=== PATIENT | female | born 2005 | race African-American/Black ===

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

== ENCOUNTER 2024-02-13 19:13 | Emergency (ER) | payer OTHER, SELFPAY ==
--- NOTE | ~2024-02-13 | XR_ITS ---
XR ankle RT min 3V Ordering provider: Sofia Lomas APRN History: . INVERSION INJURY, LAT MALLEOLUS PAIN . Comparison: None. FINDINGS: BONES: No acute fracture or dislocation. JOINT SPACES: Normal. SOFT TISSUES: Normal. IMPRESSION: No acute osseous abnormality of the right ankle. Reviewed, dictated and finalized at location A.
[2024-02-13 19:21] VITALS: BP 129/66; PULSE 85; RESP 16; TEMP 36.6; O2SAT 100
--- NOTE | 2024-02-13 19:42 | ED.GENADULT ---
HPI - General Adult General Chief complaint: Fall Stated complaint: Fall Time Seen by Provider: 02/13/24 19:28 Source: patient, RN notes reviewed and old records reviewed Mode of arrival: ambulatory Limitations: no limitations History of Present Illness HPI narrative: 18-year-old female to Express Care for complaint of right ankle pain and swelling. Patient reports that just prior to arrival she was running through her front yd when she twisted her ankle and fell. Patient reports history of 2 prior sprains to same ankle. Patient attempted to treat prior to arrival with elevation and ice. Patient arrives with crutches from home. Patient endorsing limited range of motion to right ankle due to pain. Patient denies numbness, tingling, surgical history. Patient resting uncomfortably in exam room due to pain. Respirations even and nonlabored. Patient in no acute distress. Related Data Home Medications Medication Instructions Recorded Confirmed citalopram 20 mg tablet 20 mg DAILY 02/13/24 02/13/24 Allergies Allergy/AdvReac Type Severity Reaction Status Date / Time No Known Allergies Allergy Unverified 02/13/24 19:24 Review of Systems Review of Systems: All systems reviewed & are unremarkable except as noted in HPI and below Constitutional: Constitutional: Reports no additional constitutional complaints Eyes: Eyes: Reports no additional eye complaints ENT: Reports system reviewed and no additional complaints, except as documented Cardiovascular: Cardiovascular: Reports no additional cardiovascular complaints, Denies chest pain and Denies dyspnea Respiratory: Respiratory: Reports no additional respiratory complaints, Denies cough and Denies dyspnea Musculoskeletal: Musculoskeletal: Reports as per HPI, Reports arthralgias, Reports joint swelling and Reports limited range of motion Neurologic: Reports system reviewed and no additional complaints, except as documented Psychiatric: Psychiatric: Reports no additional psychiatric complaints PMFSH Comments At the time of my signature, I reviewed and agree with the nursing past medical, surgical, social, and family history. There is no relevant family history pertinent to the patient complaint. Exam Const: General: cooperative, healthy appearing, no acute distress, alert, uncomfortable and well nourished Nutritional Appearance: well nourished Orientation/consciousness: patient oriented x3 Limitations: no limitations HENMT: Head: normal to inspection Ears: external ears normal Face/Nose/Sinus: Normal external nose present, Normal nares present, normal facial exam, No erythema and No edema Face and sinus: normal facial exam, no erythema and no edema Mouth: Yes Normal oral and palatal mucosa present Eyes: General: appearance normal, both eyes and all related structures Neck: Neck: normal visual inspection, full ROM and no meningeal signs Chest: Chest palpation & inspection: normal inspection of the chest Resp: Effort & Inspection: normal respiratory effort and able to speak in complete sentences Cardio: Jugular venous distension: no JVD Back/Spine/Pelvis: Cervical Spine: cervical ROM normal Skin: General skin exam: normal color, no rashes or lesions noted and turgor normal Neuro: General: patient oriented x3, No gait normal, moves all extremities and no meningeal signs Speech: normal speech Gait exam (Neuro): gait abnormal and Assisted gait required crutches Extrem: General: capillary refill normal Right lower extremity: normal capillary refill, edema Details: non-pitting and 2+, ankle Details: tenderness, swelling, edema Details: non-pitting and 2+ and abnormal ROM; no unusual warmth, no ecchymosis and no crepitus and foot Details: normal capillary refill, toes with normal ROM and vascular exam Details: dorsalis pedis pulse present, posterior tibial pulse present and normal capillary refill Psych: Appearance: grossly normal and well kempt Course Course
== END 2024-02-13 19:57 | disposition home or self-care (01) ==
PROVIDERS: Emergency Provider Nurse Practitioner Family
DX: S93.401A Sprain of unspecified ligament of right ankle, initial encounter (principal); X50.9XXA Other and unspecified overexertion or strenuous movements or postures, initial encounter; Y93.02 Activity, running
CPT/HCPCS: 73610; 99213; G0463

== ENCOUNTER 2024-08-19 14:56 | Emergency (ER) | payer MEDICAID, SELFPAY ==
--- NOTE | 2024-08-19 15:03 | ED_ITS ---
HPI - URI/Sore Throat General Chief Complaint: Upper Respiratory Infection Stated Complaint: sinus congestion Time Seen by Provider: 08/19/24 15:27 Source: patient, RN notes reviewed and old records reviewed Mode of arrival: ambulatory Limitations: no limitations History of Present Illness HPI Narrative: 18-year-old female presents to the [facility] with 3 day history of runny nose, stuffy nose, cough, headaches, sinus congestion. Reports that she has taken Benadryl. Denies fevers, chest pain, shortness of breath. Related Data Home Medications ?Medication ?Instructions ?Recorded ?Confirmed ?Last Taken ?Type citalopram 20 mg tablet 20 mg DAILY 02/13/24 02/13/24 Unknown History sertraline 50 mg tablet mg 08/19/24 Unknown History Allergies Allergy/AdvReac Type Severity Reaction Status Date / Time No Known Allergies Allergy Unverified 08/19/24 15:21 Review of Systems Review of Systems: All systems reviewed & are unremarkable except as noted in HPI and below Constitutional: Constitutional: Reports as per HPI ENT: Reports as per HPI and Reports nasal discharge Cardiovascular: Cardiovascular: Reports no additional cardiovascular complaints, Denies chest pain and Denies dyspnea Respiratory: Respiratory: Reports as per HPI, Denies chest congestion, Reports cough and Denies dyspnea Musculoskeletal: Musculoskeletal: Reports no additional musculoskeletal complaints Integumentary/Breasts: Skin/Breast: Reports system reviewed and no additional complaints, except as docu PMFSH Comments At the time of my signature, I reviewed and agree with the nursing past medical, surgical, social, and family history. There is no relevant family history pertinent to the patient complaint. Exam Const: General: cooperative, healthy appearing, comfortable, no acute dis tress, well developed, alert and well nourished Nutritional Appearance: well nourished Orientation/consciousness: patient oriented x3 Limitations: no limitations HENMT: Head: normal to inspection Ears: hearing grossly normal bilaterally, external ears normal, TM's normal bilaterally, EAC's normal, mastoids normal and no periauricular adenopathy Face/Nose/Sinus: Normal external nose present, Normal nares present, Normal nasal mucous membranes and turbinates present and Nasal discharge present clear bilateral Mouth: Yes Normal oral and palatal mucosa present, Yes lip normal, Yes tongue normal and Yes moist mucous membranes Throat: uvula midline, postnasal drainage and no uvular edema Eyes: General: appearance normal, both eyes and all related structures Alignment and Position: alignment normal Neck: Neck: normal visual inspection, full ROM, no lymphadenopathy and no meningeal signs Chest: Chest palpation & inspection: normal inspection of the chest Resp: Effort & Inspection: normal respiratory effort and able to speak in complete sentences Auscultation: clear to auscultation bilaterally, no crackles, no rales, no rhonchi and no wheezes Cardio: Rate: regular rate Skin: General skin exam: normal color and no rashes or lesions noted Neuro: General: patient oriented x3, gait normal, moves all extremities and no meningeal signs Cognition (Neuro): normal cognition Speech: normal speech Gait exam (Neuro): Normal gait present Extrem: General: normal to inspection, full ROM, capillary refill normal and normal gait Psych: Appearance: grossly normal and well kempt Mental Status: mental status grossly normal Speech and movement: Normal speech and movement present and Clear speech present Affect: normal affect Attitude: cooperative Course Course Level of Care: Express Care Visit Vital Signs Vital signs: Vital Signs Temperature 97.6 F 08/19/24 15:13 Pulse Rate 83 08/19/24 15:13 Respiratory Rate 16 08/19/24 15:13 Blood Pressure 126/70 08/19/24 15:13 Pulse Oximetry 100 08/19/24 15:13 Oxygen Delivery Room Air 08/19/24 15:13 Temperature 97.6 F 08/19/24 15:13 Pulse Rate 83 08/19/24 15:13 Respiratory Rate 16 08/19/24 15:13 Blood Pressure 126/70 08/19/24 15:13 Pulse Oximetry 100 08/19/24 15:13 Oxygen Delivery Room Air 08/19/24 15:13 Reviewed MDM - URI/Sore Throat MDM Narrative Medical decision making narrative: Patient sitting comfortably in exam room. Nontoxic, vitals stable. Patient with a 3 day history of URI symptoms. Flu COVID strep were negative, will send for culture. Patient appropriate for outpatient treatment viral URI, allergies and follow-up Discharge instructions reviewed with patient, as well as provided in writing per nursing staff. The instructions also include specific and strict return/GO TO THE ER as well as f/u information. All questions have been answered, and the patient deny any further questions with discharge and discharge plan. Some parts of this dictation were generated by voice recognition software and may contain typographical and/or grammatical inaccuracies. Differential Diagnosis Differential diagnosis: Likely upper respiratory infection, otitis media, sinusitis, viral infection, bronchitis, influenza and pharyngitis Critical Care Time Critical Care Time Critical Care Time: No Discharge Plan Discharge Clinical Impression: PND (post-nasal drip) Upper respiratory infection Qualifiers: URI type: unspecified viral URI Qualified Code(s): J06.9 - Acute upper respiratory infection, unspecified Patient Disposition: Home, Self-Care Condition: Stable Instructions: Antibiotic Form, Upper Respiratory Infection (DC), Postnasal Drip (DC) Additional Instructions: Your rapid strep swab was negative today at [facility]. A throat culture will be sent to the laboratory for further testing. If the test is positive, you will receive a phone call within 48 hours and an appropriate antibiotic will be initiated at that time. Your rapid COVID test were negative Your rapid flu test was negative Your symptoms are likely due to a viral illness, which is not treated with antibiotics. Typically viral infections last 7-10 days, can linger for couple of weeks. It is very important to treat your symptoms. Drink plenty of water, Gatorade, Pedialyte, ice pops or Jell-O. -Alternate Tylenol and Motrin per package directions for fever or pain. You can alternate every 4 hours -Antihistamine medication such as Zyrtec/Claritin/Megha during the day can help improve symptoms. -doing daily nasal irrigations can help relieve pressure your sinuses. Things like a Neti pot -Use Flonase twice a day for 5 days then daily to help reduce the inflammation and dry up your sinuses. -You can also use Mucinex. Be sure to drink plenty of water with this medication at least 8 ounces with every dose and it is important to drink 8 to 10 glasses of water per day. Water is a natural decongestant -Eat and drink things that are easy to swallow, like tea or soup, or popsicles. -Oral rinses such as: Salt water gargles and/or may use topical anesthetic (eg. Chloraseptic spray) or lozenges to relieve dryness or throat pain). -Frequent hand washing or hand central control room operator is one of the best ways to prevent spread of infection. -Using a vaporizer or humidifier at night will also help thin secretions and help with coughing up phlegm. -Follow up with primary care provider in 7-10 days if condition is not improving - For new or worsening symptoms go directly to the nearest ER Patient Language: Bulgarian Prescriptions: No Action citalopram 20 mg tablet 20 mg DAILY sertraline 50 mg tablet Follow-up/Referrals: Maryann Alexis RN [Primary Care Provider] - Time of Disposition: 15:31
[2024-08-19 15:13] VITALS: BP 126/70; PULSE 83; RESP 16; TEMP 36.4; O2SAT 100
--- OUTSIDE RECORDS SUMMARY | 2024-08-19 15:22 | XMS_ITS | Clinical Summary ---
Author Organization [facility] Address [address] [place] [address] Phone Care Team Providers Care Clinical Informatics Specialist Name Role Phone Maryann Alexis APRN, LACING CUTTER Primary Care Provider + Allergies Active Allergy Reactions Criticality Noted Date Comments Cat Dander Swelling 09/19/2023 SWELLING OF EYES Medications ondansetron (ZOFRAN-ODT) 4 MG TABLET DISPERSIBLE Take 1 Tablet by mouth every 8 hours as needed for Nausea - 2nd line. 10 Tablet 5 Active polyethylene glycol (MiraLax) 17 GM/SCOOP Powder Take 17 g by mouth daily. 17 g = 1 scoop. Dissolve in 4 -8 oz of water or other liquid. 116 g 5 Active Additional Information Patient not taking.Reported on 08/13/2024 sertraline (ZOLOFT) 50 MG TabletIndication s:Anxiety and depression TAKE 1 TABLET BY MOUTH DAILY 90 Tablet 1 5 Active Additional Information Patient taking differently:50 mg OralNIGHTLY, Reported on 08/13/2024 Active Problems No known active problems Encounters Date Type Department Care Team Description 08/13/2024 12:30 PM CDT - 08/13/2024 1:30 PM CDT Surgery [facility] Periop [address] [place] [address] Sterling Onofre MD EGD--NORMAL EXAM 08/13/2024 12:10 PM CDT Ancillary Procedure [facility] Main [address] [place] [address] Sterling Onofre MD 08/13/2024 12:05 PM CDT Ancillary Procedure [facility] Main [address] [facility] [place] [address] Sterling Onofre MD 08/13/2024 12:01 PM CDT Anesthesia Event [facility] Periop [address] [place] [address] Bharath Dias APRN, PRODUCTION DRILLING MACHINE OPERATOR 08/13/2024 11:30 AM CDT - 08/13/2024 1:34 PM CDT Hospital Encounter [facility] Preop/Pacu II [address] [place] [address] Sterling Onofre MD Discharge Disposition: Discharged to home or Selfcare 08/13/2024 Travel 08/02/2024 Travel 07/18/2024 Refill [facility] - Family Medicine [facility] [address] [place] [address] Maryann Alexis APRN, LACING CUTTER Medication Refill 07/05/2024 10:30 AM PRESIDENT PRACTICING UROLOGIST Office Visit [facility] Medical [facility] - Gastroenterology - [place] [address] [place] [address] Sterling Onofre MD Blood in stool (Primary Dx); Nausea and vomiting, unspecified vomiting type; Diarrhea, unspecified type Discharge Disposition: Discharged to home or Selfcare 07/05/2024 Travel 06/23/2024 5:10 PM PRESIDENT PRACTICING UROLOGIST - 06/23/2024 8:54 PM PRESIDENT PRACTICING UROLOGIST Emergency [facility] Emergency [address] [place] [address] Dario Flores, PAC Acute blood loss anemia Discharge Disposition: Discharged to home or Selfcare 06/23/2024 Travel 06/14/2024 Telephone [facility] - [place] [address] [place] [phone] Maryann Alexis APRN, LACING CUTTER 06/14/[address] [facility] [address] [place] [phone] Maryann Alexis, SEDRICK, LACING CUTTER Medication Management 06/04/2024 10:00 AM PRESIDENT PRACTICING UROLOGIST [facility] Visit [facility] [address] [place] [address] Maryann Alexis, SEDRICK, LACING CUTTER Anxiety and depression (Primary Dx); Nausea and vomiting, unspecified vomiting type; Diarrhea, unspecified type Discharge Disposition: Discharged to home or Selfcare 06/04/2024 Travel from Last 3 Months Immunizations Immunization Administration Dates Next Due DTAP VACCINE 12/12/2005, 5,01/07/2005,11/22 DTP Vaccine 09/30/2008 Hepatitis A Vaccine, Pediatric/adolescent, 2 Dose Schedule 10/02/2006 Hepatitis A, Pediatric, Unsp ecified Formulation 03/11/2006 Hepatitis B Vaccine, Pediatric/adolescent 03/29/2010,01/07/2005,2004,09/06 Hib Vaccine,unspecified Formulation 11/30,03/27/2005,01/07/2005,11/22 Human Papillomavirus (HPV) 9 -valent Vaccine 06/12/2016,11/07/2015 Inactivated Polio Vaccine 03/27/2005,01/07/2005, 2004 Influenza Vaccine, Quadrivalent, PF 11/0 10/2022,04/22/2022,03/01/2021,04/08,04/23/2017,06/12/2016,06/08/2015 ,03/29/2014 Influenza Vaccine,unspecifie d Formulation 03/13/2012,03/29/2010 MMR Vaccine 09/30/2008,09/09/2005 Meningococcal Group B OMV 03/01/2021,12/14/2020 Meningococcal MCV4O 11/07/2015 Meningococcal Vaccine 12/14/2020 Pneumococcal Vaccine Peds - 7 Valent ,03/27/2005,01/07/2005,11/22 Polio Vaccine,unspecified Formulation 09/30/2008 TDAP Vaccine 11/15/2014 Varicella Vaccine Live 09/30/2008,09/09/2005 Family History Medical History Relation Name Comments Bleeding Disorder Father Congestive Heart Failure Maternal Grandfather Diabetes Maternal Grandfather Hypertension Maternal Grandfather Stroke Maternal Grandfather Congestive Heart Failure Maternal Grandmother High Cholesterol Maternal Grandmother Anxiety disorder Mother Depression Mother High Cholesterol Mother Cancer Paternal Grandfather No Known Problems Paternal Grandmother No Known Problems Sister Relation Name Status Comments Father Alive Maternal Grandfather Maternal Grandmother Alive Mother Alive Paternal Grandfather Paternal Grandmother Alive Sister Alive Social History Tobacco Use Types Packs/Day Years Used Date Smoking Tobacco: Never Alcohol Use Standard Drinks/Week Comments Not Currently 0 (1 standard drink = 0.6 oz pur e alcohol) Urgeities Answer Date Recorded In the past 12 months has [employer], gas, oil, or water [employer] threatened to shut off services in your home? No 09/18/2023 Social Connection and Isolat ion Panel [NHANES] Answer Date Recorded In a typical week, how many times do you talk on the phone with family, friends, or neighbors? More than three times a week 09/18/2023 How often do you get togethe r with friends or relatives? Twice a week 09/18/2023 How often do you attend chur or buddhist services? Never 09/18/2023 Do you belong to any clubs o r organizations such as mosque groups, unions, fraternal or athletic groups, or school groups? No 09/18/2023 How often do you attend meet ings of the clubs or organizations you belong to? Never 09/18/2023 Are you , , di vorced, , never , or living with a partner? Never 09/18/2023 AUDIT-C Answer Date Recorded Q1: How often do you have a drink containing alc ohol? Monthly or less 09/18/2023 Q2: How many drinks containi ng alcohol do you have on a typical day when you are drinking? 1 or 2 09/18/2023 Q3: How often do you have si x or more drinks on one occasion? Less than monthly 09/18/2023 Overall Financial Resource Strain (CARDIA) Answe r Date Recorded How hard is it for you to pa y for the very basics like food, housing, medical care, and heating? Not hard at all 09/18/2023 PHQ-2 Answer Date Recorded Total Score - Questions 1-9 1 07/2024 [facility] - Occupational Stress Questionnaire Answer Date Recorded Do you feel stress - tense, restless, nervous, or anxious, or unable to sleep at night because your mind is troubled all the time - these days? Very much 09/18/2023 Exercise Vital Sign Answer Date Recorde d On average, how many days pe r week do you engage in moderate to strenuous exercise (like a brisk walk)? 1 day 09/18/2023 On average, how many minutes do you engage in exercise at this level? 60 min 09/18/2023 Hunger Vital Sign Answer Date Recorded Within the past 12 months, y ou worried that your food would run out before you got the money to buy more. Never true 09/18/19 24 Within the past 12 months, t he food you bought just didn't last and you didn't have money to get more. Never true 09/18/2023 PRAPARE - Transportation Answer Date Re corded In the past 12 months, has l ack of transportation kept you from medical appointments or from getting medications? No 08/31 In the past 12 months, has l ack of transportation kept you from meetings, work, or from getting things needed for daily living? No 09/18/2023 Housing Stability Vital Sign Answer Marcio e Recorded In the last 12 months, was t here a time when you were not able to pay the mortgage or rent on time? No 09/18/2023 In the last 12 months, how many places have you lived? 1 09/18/2023 In the last 12 months, was t here a time when you did not have a steady place to sleep or slept in a correction (including now)? No 09/18/2023 Sexually Active Control Partners Comments Not Currently Female Comments No Sex and Gender Information Value Date Recorded Sex Assigned at Not on file Legal Sex Female 7:57 PM CDT Gender Identity Not on file Sexual Orientation Not on file Last Filed Vital Signs Vital Sign Reading Time Taken Comments Blood Pressure 123/75 08/13/2024 1:15 PM CDT Pulse 68 08/13/2024 1:15 PM CDT Temperature 36 C (96.8 F) 08/13/2024 1:15 PM CDT Respiratory Rate 16 08/13/2024 1:15 PM CDT Oxygen Saturation 100% 08/13/2024 1:15 PM CDT Inhaled Oxygen Concentration - - Weight 66.7 kg (147 lb) 08/02/2024 2:13 PM PRESIDENT PRACTICING UROLOGIST Height 165.1 cm (5' 5 ) 08/02/2024 2:13 PM PRESIDENT PRACTICING UROLOGIST Body Mass Index 24.46 08/02/2024 2:13 PM PRESIDENT PRACTICING UROLOGIST Plan of Treatment Upcoming Encounters Date Type Department Care Team (Late st Contact Info) Description 10/01/2024 8:15 AM CDT Office Visit [facility] [address] [place] [address] Maryann Alexis, CUT AND PRINT MACHINE OPERATOR, LACING CUTTER [address] [place] [address] Health Maintenance Due Date Last Done Comments Hepatitis C Virus (HCV) Screening 2004 Influenza Immunization (#1) 2024 11/0 10/2022, 04/22/2022, 03/01/2021, Additional history exists SARS-COV-2 Immunization ( season) 2024 DTaP/Tdap/Td Immunization (7 - Td or Tdap) 11/15/2024 11/15/2014, 09/30/2008, 12/12/2005, Additional history exists Respiratory Syncytial Virus (RSV) Immunization (Adult) (1 - 1-dose 75+ series) 09/07/2079 Polio (IPV) Immunization Discontinued 005, 01/07/2005, 2004 Pneumococcal Immunization Combined Aged Out 12/12/2005, 03/27/2005, 01/07/2005, Additional history exists No longer eligible based on patient's age to complete this topic Hepatitis A Immunization Discontinued 10/02/2006, 03/02 Measles Mumps Rubella (MMR) Immunization Discontinued 09/30/2008, 09/09/2005 Varicella Immunization Discontinued 09/30/2008, 2005 Hepatitis B Immunization Completed 010, 01/07/2005, 2004, Additional history exists TdaP Immunization Discontinued 11/15/2014 Human Papillomavirus (HPV) Immunization Completed 06/12/2016, 11/07/2015 Meningococcal Immunization (ACWY) Completed 12/14/2020, 11/07/2015 Meningococcal B Immunization Completed 03/01/2021, 12/14/2020 Rotavirus Immunization Aged Out No lo nger eligible based on patient's age to complete this topic Procedures Procedure Name Priority Date/Time Associated Diagnosis Comments PATHOLOGY SURGICAL Routine 08/13/2024 12:42 PM CDT COLON CA SCRN NOT HI RSK IND 12:03 PM CDT COLONOSCOPY-- CECAL BIOPSY, ASCENDING COLON BIOPSY, TRANSVERSE COLON BIOPSY, DESCENDING COLON BIOPSY, SIGMOID COLON BIOPSY, RECTAL BIOPSYEGD--NO RMAL EXAM Special Needs NEEDS PREG TEST Dx-Nausea & vomiting/Diarrhea COLORECTAL SCRN; HI RISK IND 12:03 PM CDT COLONOSCOPY-- CECAL BIOPSY, ASCENDING COLON BIOPSY, TRANSVERSE COLON BIOPSY, DESCENDING COLON BIOPSY, SIGMOID COLON BIOPSY, RECTAL BIOPSYEGD--NO RMAL EXAM Special Needs NEEDS PREG TEST Dx-Nausea & vomiting/Diarrhea IN COLONOSCOPY FLX DX W/NISSA J SPEC WHEN PFRMD 08/13/2024 12:03 PM CDT COLONOSCOPY-- CECAL BIOPSY, ASCENDING COLON BIOPSY, TRANSVERSE COLON BIOPSY, DESCENDING COLON BIOPSY, SIGMOID COLON BIOPSY, RECTAL BIOPSYEGD--NO RMAL EXAM Special Needs NEEDS PREG TEST Dx-Nausea & vomiting/Diarrhea IN ESOPHAGOGASTRODUODENOSCOP Y TRANSORAL DIAGNOSTIC 08/13/2024 12:03 PM CDT COLONOSCOPY-- CECAL BIOPSY, ASCENDING COLON BIOPSY, TRANSVERSE COLON BIOPSY, DESCENDING COLON BIOPSY, SIGMOID COLON BIOPSY, RECTAL BIOPSYEGD--NO RMAL EXAM Special Needs NEEDS PREG TEST Dx-Nausea & vomiting/Diarrhea IN EGD FLEXIBLE TRANSNASAL D X W/COLLJ SPEC BR/WA 08/13/2024 12:03 PM CDT COLONOSCOPY-- CECAL BIOPSY, ASCENDING COLON BIOPSY, TRANSVERSE COLON BIOPSY, DESCENDING COLON BIOPSY, SIGMOID COLON BIOPSY, RECTAL BIOPSYEGD--NO RMAL EXAM Special Needs NEEDS PREG TEST Dx-Nausea & vomiting/Diarrhea GI IMAGING - COLONOSCOPY Routine 025 12:02 PM CDT GI LAB IMAGING - EGD Routine 08/13/2024 12:02 PM CDT POCT URINE HCG () Routine 08/13 11:48 AM CDT HEMOGLOBIN & HEMATOCRIT (H&H) STAT 10:54 AM PRESIDENT PRACTICING UROLOGIST Lower GI bleed HEMOGLOBIN & HEMATOCRIT (H&H) STAT 7:54 PM PRESIDENT PRACTICING UROLOGIST CT ABDOMEN PELVIS W/ CONTRAST Stat with Interpretation 06/23/2024 7:45 PM PRESIDENT PRACTICING UROLOGIST POCT URINE HCG () STAT 06/23 2:49 PM PRESIDENT PRACTICING UROLOGIST URINALYSIS REFLEX IF INDICAT ED BY ABNORMAL RESULTS STAT 06/23/2024 2:49 PM PRESIDENT PRACTICING UROLOGIST CBC WITH AUTO DIFFERENTIAL STAT 06/23 1:53 PM PRESIDENT PRACTICING UROLOGIST LIPASE STAT 06/23/2024 1:53 PM PRESIDENT PRACTICING UROLOGIST CMP (COMPREHENSIVE METABOLIC PANEL) STAT 06/23/2024 1:53 PM PRESIDENT PRACTICING UROLOGIST COMPLETE BLOOD COUNT (CBC) WITH DIFF STAT 06/23/2024 1:53 PM PRESIDENT PRACTICING UROLOGIST RSV,SARS-COV-2,INFLUENZA A&B BY PCR STAT 06/23/2024 1:53 PM PRESIDENT PRACTICING UROLOGIST from Last 3 Months Results * Pathology Surgical (08/13/2024 12:42 PM CDT) Case Report Surgical Pathology Report Case: [id number] Authorizing Provider: Sterling Onofre MD Collected: 08/13/2024 12:42 PM Ordering Location: [facility] Received: 08/13/2024 01:16 PM [facility] Main Pathologist: Stephen Woods MD Specimens: A) - Colon, CECAL BIOPSY B) - Colon, ASCENDING COLON BIOPSY C) - Colon, TRANSVERSE COLON BIOPSY D) - Colon, DESCENDING COLON BIOPSY E) - Colon, SIGMOID COLON BIOPSY F) - Rectal, RECTAL BIOPSY 08/16/2024 10:49 AM CDT [facility] FINAL DIAGNOSIS A. Cecal biopsy: - No histologic abnormality - No microscopic colitis B. Ascending colon biopsy: - No histologic abnormality - No microscopic colitis C. Transverse colon biopsy: - No histologic abnormality - No microscopic colitis D. Descending colon biopsy: - No histologic abnormality - No microscopic colitis E. Sigmoid colon biopsy: - No histologic abnormality - No microscopic colitis F. Rectal biopsy: - No histologic abnormality - No microscopic colitis 08/16/2024 10:49 AM CDT [facility] at 1049 CDT Pre-Operative Diagnosis NAUSEA, VOMITING, DIARRHEA 08/16/2024 10:49 AM CDT [facility] Gross Description A. CECAL BIOPSY The specimen presents in six formalin containers for gross and microscopic examination labeled with the patient's name, Monica Martin. Part A is designated as cecal biopsy. The specimen consists of two pieces of light mustafa tissue measuring 0.3 to 0.4 cm in greatest dimension. All submitted cassette A.1 B. ASCENDING COLON BIOPSY Part B is designated as ascending colon biopsy. The specimen consists of two pieces of light mustafa tissue measuring 0.4 to 0.5 cm in greatest dimension. All submitted cassette B1. C. TRANSVERSE COLON BIOPSY Part C is designated as transverse colon biopsy. The specimen consists of two pieces of light mustafa tissue measuring 0.3 cm in greatest dimension for each. All submitted cassette C1. D. DESCENDING COLON BIOPSY Part D. Is designated as descending colon biopsy. The specimen consists of a single light mustafa tissue measuring 0.4 cm in greatest dimension. All submitted cassette D1. E. SIGMOID COLON BIOPSY Part E is designated as sigmoid colon biopsy. The specimen consists of two pieces of light mustafa tissue measuring 0.2 to 0.4 cm in greatest dimension. All submitted cassette E1. F. RECTAL BIOPSY Part F is designated as rectal biopsy. The specimen consists of two pieces of light mustafa tissue measuring 0.2 to 0.4 cm in greatest dimension. All submitted cassette F1. Total time of fixation is 57 hours, 4 minutes. KS/sb 08/16/2024 10:49 AM CDT [facility] Microscopic Description A. Sections show normal-appeari ng colon. B. Sections show normal-appeari ng colon. C. Sections show normal-appeari ng colon. D. Sections show normal-appeari ng colon. E. Sections show normal-appeari ng colon. F. Sections show normal-appeari ng colon. 08/16/2024 10:49 AM CDT [facility] Tissue COLON STRUCTURE / Unknown 08/13/2024 12:42 PM CDT 08/13/2024 1:16 PM CDT Tissue specimen (specimen) COLON STRUCTURE / Unknown 08/13/2024 12:42 PM CDT 08/13/2024 1:16 PM CDT Tissue specimen (specimen) COLON STRUCTURE / Unknown 08/13/2024 12:42 PM CDT 08/13/2024 1:16 PM CDT Tissue specimen (specimen) COLON STRUCTURE / Unknown 08/13/2024 12:42 PM CDT 08/13/2024 1:16 PM CDT Tissue specimen (specimen) COLON STRUCTURE / Unknown 08/13/2024 12:43 PM CDT 08/13/2024 1:16 PM CDT Tissue specimen (specimen) (Rectal) 08/13/2024 12:43 PM CDT 08/13/2024 1:16 PM CDT Sterling Onofre MD PATHOLOGY/CYTOLOGY ORDERA BLES Final Result [facility] [address] [place] [address] * GI IMAGING - COLONOSCOPY (08/13/2024 12:02 PM CDT) Sterling Onofre MD IMG DIAGNOSTIC ORDERABLES Final Result * GI LAB IMAGING - EGD (08/13/2024 12:02 PM CDT) Sterling Onofre MD IMG DIAGNOSTIC ORDERABLES Final Result * POCT Urine HCG () (08/13/2024 11:48 AM CDT) Only the most recent of2 resultswithin the time period is included. POC URINE Negative POC URINE CONTROL Veterinary Dentist Pass Urine 08/13/2024 11:4 8 AM CDT Sterling Onofre MD POINT OF CARE TESTING (MA NUAL) Final Result * (ABNORMAL) HEMOGLOBIN & HEMATOCRIT (H&H) (06/24/2024 10:54 AM PRESIDENT PRACTICING UROLOGIST) Only the most recent of2 resultswithin the time period is included. HEMOGLOBIN (HGB) 11.3(L) 12.0 - 15.8 g/dL 06/24/2024 11:09 AM PRESIDENT PRACTICING UROLOGIST [facility] HEMATOCRIT (HCT) 34.4(L) 36.0 - 47.0 % 06/24/2024 11:09 AM PRESIDENT PRACTICING UROLOGIST [facility] Blood Venipuncture / Unknown 06/24/2024 10:54 AM PRESIDENT PRACTICING UROLOGIST 06/24/2024 11:04 AM PRESIDENT PRACTICING UROLOGIST Dario Flores PAC HEMATOLOGY ORDERABLE S Final Result [facility] [address] [place] [address] * CT ABDOMEN PELVIS W/ CONTRAST (06/23/2024 7:45 PM PRESIDENT PRACTICING UROLOGIST) Anatomical Region Laterality Modality Abdomen N/A Computed Tomogra phy 06/23/2024 7:58 PM PRESIDENT PRACTICING UROLOGIST Impressions 06/23/2024 8:00 PM PRESIDENT PRACTICING UROLOGIST IMPRESSION: 1. No discrete CT findings to explain patient's abdominal pain. Narrative 06/23/2024 8:00 PM PRESIDENT PRACTICING UROLOGIST EXAM DESCRIPTION: CT ABDOMEN PELVIS W/ CONTRAST REASON FOR STUDY: c/o nausea, blood in stools, SALES FLOOR TEAM MEMBER. HX of asthma . TECHNIQUE: CT scan of the abdomen and pelvis performed with intravenous and without oral contrast using helical scanning technique with dynamic intravenous contrast injection. Reconstructed coronal and sagittal MPR images reviewed. All images stored on PACS. Automated exposure control was used as a dose optimization technique for this examination. CONTRAST TYPE/DOSE: 78mL of IOPAMIDOL 76 % IV SOLN injected COMPARISON: None available FINDINGS: LOWER CHEST: Mild scattered subsegmental atelectasis. No pleural effusion. Imaged portions of the heart and esophagus are within normal limits. LIVER: Normal size. No identified cystic or solid masses. The portal veins are patent. GALLBLADDER: Normal. BILE DUCTS: No intrahepatic or extrahepatic ductal dilatation. SPLEEN: Normal size. No focal lesions. PANCREAS: No identified cystic or solid masses. No significant calcifications. No adjacent inflammation or peripancreatic fluid collections. Pancreatic duct not dilated. ADRENALS: Normal. KIDNEYS/URINARY TRACT: No identified significant cystic or solid masses. No visualized stones. No hydronephrosis or hydroureter. Symmetric enhancement. Urinary bladder is unremarkable. GI: The stomach is normal. The small bowel and colon are normal in course and caliber with no evidence of obstruction or inflammation. The appendix is normal. PERITONEUM: No free air. Trace volume free pelvic fluid. No lymphadenopathy. RETROPERITONEUM: No mass or adenopathy. REPRODUCTIVE: No significant abnormality. Adnexal follicles are present. An endovaginal tampon is present. VASCULATURE: No abdominal aortic aneurysm. The abdominal aorta and its branches are patent. MUSCULOSKELETAL: No acute fractures or aggressive osseous lesions. THIS IS AN ELECTRONICALLY VERIFIED FINAL REPORT 06/23/2024 7:58 PM - Electronically signed by Aldo Drake M.D. AT: AT Report ID: [id number] Reading Location: [id number] Procedure Note Aldo Drake MD - 06/23/2024 EXAM DESCRIPTION: CT ABDOMEN PELVIS W/ CONTRAST REASON FOR STUDY: c/o nausea, blood in stools, SALES FLOOR TEAM MEMBER. HX of asthma . TECHNIQUE: CT scan of the abdomen and pelvis performed with intravenous and without oral contrast using helical scanning technique with dynamic intravenous contrast injection. Reconstructed coronal and sagittal MPR images reviewed. All images stored on PACS. Automated exposure control was used as a dose optimization technique for this examination. CONTRAST TYPE/DOSE: 78mL of IOPAMIDOL 76 % IV SOLN injected COMPARISON: None available FINDINGS: LOWER CHEST: Mild scattered subsegmental atelectasis. No pleural effusion. Imaged portions of the heart and esophagus are within normal limits. LIVER: Normal size. No identified cystic or solid masses. The portal veins are patent. GALLBLADDER: Normal. BILE DUCTS: No intrahepatic or extrahepatic ductal dilatation. SPLEEN: Normal size. No focal lesions. PANCREAS: No identified cystic or solid masses. No significant calcifications. No adjacent inflammation or peripancreatic fluid collections. Pancreatic duct not dilated. ADRENALS: Normal. KIDNEYS/URINARY TRACT: No identified significant cystic or solid masses. No visualized stones. No hydronephrosis or hydroureter. Symmetric enhancement. Urinary bladder is unremarkable. GI: The stomach is normal. The small bowel and colon are normal in course and caliber with no evidence of obstruction or inflammation. The appendix is normal. PERITONEUM: No free air. Trace volume free pelvic fluid. No lymphadenopathy. RETROPERITONEUM: No mass or adenopathy. REPRODUCTIVE: No significant abnormality. Adnexal follicles are present. An endovaginal tampon is present. VASCULATURE: No abdominal aortic aneurysm. The abdominal aorta and its branches are patent. MUSCULOSKELETAL: No acute fractures or aggressive osseous lesions. THIS IS AN ELECTRONICALLY VERIFIED FINAL REPORT 06/23/2024 7:58 PM - Electronically signed by Aldo Drake M.D. AT: AT Report ID: [id number] Reading Location: [id number] IMPRESSION: 1. No discrete CT findings to explain patient's abdominal pain. Dario Flores PAC G CT ORDERABLES Fi nal Result * Urinalysis w/ Reflex (06/23/2024 2:49 PM PRESIDENT PRACTICING UROLOGIST) SPECIFIC GRAVITY 1.005 1.003 - 1.030 06/23/2024 4:12 PM PRESIDENT PRACTICING UROLOGIST [facility] URINE PH 7.0 5.0 - 9.0 06/23/2024 4:12 PM PRESIDENT PRACTICING UROLOGIST [facility] WBC ESTERASE Negative Negative 06/23/2024 4:12 PM PRESIDENT PRACTICING UROLOGIST [facility] NITRITE Negative Negative 06/23/2024 4:12 PM PRESIDENT PRACTICING UROLOGIST [facility] PROTEIN, RANDOM URINE Negative Negative 06/23/2024 4:12 PM PRESIDENT PRACTICING UROLOGIST [facility] URINE GLUCOSE, QUAL Negative Negative 06/23/2024 4:12 PM PRESIDENT PRACTICING UROLOGIST [facility] URINE KETONES Negative Negative 06/23/2024 4:12 PM PRESIDENT PRACTICING UROLOGIST [facility] UROBILINOGEN Normal Normal mg/dL 06/23/2024 4:12 PM PRESIDENT PRACTICING UROLOGIST [facility] URINE BLOOD Negative Negative aby/ul 06/23/2024 4:12 PM PRESIDENT PRACTICING UROLOGIST [facility] URINALYSIS COLOR Pale yellow 025 4:12 PM PRESIDENT PRACTICING UROLOGIST [facility] URINALYSIS CLARITY Clear 06/23/2024 4:12 PM PRESIDENT PRACTICING UROLOGIST [facility] Urine URINE SPECIMEN / Unknown Non-Phlebotomy Collection / Unknown 06/23/2024 2:49 PM PRESIDENT PRACTICING UROLOGIST 06/23/2024 2:57 PM PRESIDENT PRACTICING UROLOGIST us Byron Aden MD URINE ORDERABLES Final Res ult [facility] [address] [place] [address] * RSV,SARS-COV-2,INFLUENZA A&B BY PCR (06/23/2024 1:53 PM PRESIDENT PRACTICING UROLOGIST) FLU A Negative Negative, Error 06/23/2024 3:09 PM PRESIDENT PRACTICING UROLOGIST [facility] FLU B Negative Negative 06/23/2024 3:09 PM PRESIDENT PRACTICING UROLOGIST [facility] RESP SYNC VIRUS Negative Negative 3:09 PM PRESIDENT PRACTICING UROLOGIST [facility] SARSCOV2 NOT DETECTED (Reference Range for this test is Not Detected) 06/23/2024 3:09 PM PRESIDENT PRACTICING UROLOGIST [facility] Comment:This test was perfor med by a [employer] Qa Analyst PCR Method. Swab NASOPHARYNGEAL SWAB / Unknown Non-Phlebotomy Collection / Unknown 06/23/2024 1:53 PM PRESIDENT PRACTICING UROLOGIST 06/23/2024 2:26 PM PRESIDENT PRACTICING UROLOGIST us Byron Aden MD MICROBIOLOGY - GENERAL ORD ERABLES Final Result [facility] [address] [place] [address] * CBC with Auto Differential (06/23/2024 1:53 PM PRESIDENT PRACTICING UROLOGIST) WBC 4.95 4.00 - 12.00 10(3)/mcL 06/23/2024 2:36 PM PRESIDENT PRACTICING UROLOGIST [facility] RBC 4.25 3.80 - 5.30 10(6)/mcL 06/23/2024 2:36 PM PRESIDENT PRACTICING UROLOGIST [facility] HEMOGLOBIN (HGB) 12.3 12.0 - 15.8 g/dL 06/23/2024 2:36 PM PRESIDENT PRACTICING UROLOGIST [facility] HEMATOCRIT (HCT) 37.7 36.0 - 47.0 % 06/23/2024 2:36 PM PRESIDENT PRACTICING UROLOGIST [facility] MCV 88.7 82.0 - 96.0 fL 06/23/2024 2:36 PM PRESIDENT PRACTICING UROLOGIST [facility] MCH 28.9 26.0 - 34.0 pg 06/23/2024 2:36 PM PRESIDENT PRACTICING UROLOGIST [facility] MCHC 32.6 31.0 - 36.0 g/dL 06/23/2024 2:36 PM PRESIDENT PRACTICING UROLOGIST [facility] PLATELET COUNT 318 140 - 440 10(3)/mcL 06/23/2024 2:36 PM PRESIDENT PRACTICING UROLOGIST [facility] RDW 13.1 11.8 - 15.5 % 06/23/2024 2:36 PM PRESIDENT PRACTICING UROLOGIST [facility] MPV 10.6 9.7 - 12.4 fL 06/23/2024 2:36 PM PRESIDENT PRACTICING UROLOGIST [facility] NEUTROPHILS 56.1 47.0 - 73.0 % 06/23/2024 2:36 PM PRESIDENT PRACTICING UROLOGIST [facility] LYMPHOCYTES 35.2 18.0 - 42.0 % 06/23/2024 2:36 PM PRESIDENT PRACTICING UROLOGIST [facility] MONOCYTES 5.5 4.0 - 12.0 % 06/23/2024 2:36 PM PRESIDENT PRACTICING UROLOGIST [facility] EOSINOPHILS 2.4 0.0 - 5.0 % 06/23/2024 2:36 PM PRESIDENT PRACTICING UROLOGIST [facility] BASOPHILS 0.8 0.0 - 1.0 % 06/23/2024 2:36 PM PRESIDENT PRACTICING UROLOGIST [facility] ABSOLUTE NEUTROPHILS 2.78 1.60 - 7.70 10(3)/[facility] 06/23/2024 2:36 PM PRESIDENT PRACTICING UROLOGIST [facility] ABSOLUTE LYMPHOCYTES 1.74 1.30 - 3.20 10(3)/[facility] 06/23/2024 2:36 PM PRESIDENT PRACTICING UROLOGIST [facility] ABSOLUTE MONOCYTES 0.27 0.20 - 1.00 10(3)/[facility] 06/23/2024 2:36 PM PRESIDENT PRACTICING UROLOGIST [facility] ABSOLUTE EOSINOPHIL 0.12 0.00 - 0.40 10(3)/[facility] 06/23/2024 2:36 PM PRESIDENT PRACTICING UROLOGIST [facility] ABSOLUTE BASOPHILS 0.04 0.00 - 0.10 10(3)/[facility] 06/23/2024 2:36 PM PRESIDENT PRACTICING UROLOGIST [facility] NRBC PER 100 WBC 0 06/23/19 25 2:36 PM PRESIDENT PRACTICING UROLOGIST [facility] Blood Venipuncture / Unknown 06/23/2024 1:53 PM PRESIDENT PRACTICING UROLOGIST 06/23/2024 2:26 PM PRESIDENT PRACTICING UROLOGIST us Byron Aden MD HEMATOLOGY ORDERABLES Maria C l Result [facility] [address] [place] [address] * Lipase (06/23/2024 1:53 PM PRESIDENT PRACTICING UROLOGIST) Pathologist [facility] LIPASE 20 8 - 78 U/L 06/23/2024 2:55 PM PRESIDENT PRACTICING UROLOGIST [facility] Blood Venipuncture / Unknown 06/23/2024 1:53 PM PRESIDENT PRACTICING UROLOGIST 06/23/2024 2:26 PM PRESIDENT PRACTICING UROLOGIST Byron Aden MD CHEMISTRY ORDERABLES Final Result [facility] [address] [place] [address] * (ABNORMAL) CMP (06/23/2024 1:53 PM PRESIDENT PRACTICING UROLOGIST) SODIUM 141 136 - 145 mmol/L 06/23/2024 2:55 PM PRESIDENT PRACTICING UROLOGIST [facility] POTASSIUM 3.6 3.5 - 5.1 mmol/L 06/23/2024 2:55 PM [facility] CHLORIDE 108(H) 98 - 107 mmol/L 06/23/2024 2:55 PM [facility] CO2, VENOUS 25 22 - 30 mmol/L 06/23/2024 2:55 PM [facility] ANION GAP 11.6 <18.0 mmol/L 06/23/2024 2:55 PM [facility] GLUCOSE 97 70 - 99 mg/dL 06/23/2024 2:55 PM [facility] BUN 7 5 - 18 mg/dL 06/23/2024 2:55 PM [facility] CREATININE, BLOOD 0.76 0.60 - 1.00 mg/dL 06/23/2024 2:55 PM [facility] BUN/CREATININE RATIO 9(L) 12 - 20 ratio 06/23/2024 2:55 PM [facility] TOTAL PROTEIN 8.2(H) 6.0 - 8.0 g/dL 06/23/2024 2:55 PM [facility] ALBUMIN 4.6 3.5 - 5.0 g/dL 06/23/2024 2:55 PM [facility] A/G RATIO 1.3 1.0 - 2.2 06/23/2024 2:55 PM PRESIDENT PRACTICING UROLOGIST [facility] CALCIUM 9.9 8.7 - 10.5 mg/dL 06/23/2024 2:55 PM PRESIDENT PRACTICING UROLOGIST [facility] T BILI 0.3 0.2 - 1.2 mg/dL 06/23/2024 2:55 PM PRESIDENT PRACTICING UROLOGIST [facility] SGOT (AST) 51(H) 6 - 42 U/L 06/23/2024 2:55 PM PRESIDENT PRACTICING UROLOGIST [facility] SGPT (ALT) 22 6 - 55 U/L 06/23/2024 2:55 PM PRESIDENT PRACTICING UROLOGIST [facility] ALKALINE PHOSPHATASE 47 40 - 150 U/L 06/23/2024 2:55 PM PRESIDENT PRACTICING UROLOGIST [facility] GFR, ESTIMATED >60 >=60 06/23/2024 2:55 PM PRESIDENT PRACTICING UROLOGIST [facility] Comment: Creatinine Clearance is the preferred criteria for selecting drug dose adjustments in renally impaired patients. The GFR is provided as additional pertinent clinical information. GFR is reported in mL/min/1.73 sq m. Calculation based on the Chronic Kidney Disease Epidemiology Collaboration (CKD- EPI) equation refit without adjustment for race. UNABLE TO CALCULATE GFR, EST. 025 2:55 PM PRESIDENT PRACTICING UROLOGIST [facility] GFR, EST. NONAFRICAN 06/23/2024 2:55 PM PRESIDENT PRACTICING UROLOGIST [facility] Blood Venipuncture / Unknown 06/23/2024 1:53 PM PRESIDENT PRACTICING UROLOGIST 06/23/2024 2:26 PM PRESIDENT PRACTICING UROLOGIST us Byron Aden MD CHEMISTRY ORDERABLES Final Result [facility] [address] [place] [address] from Last 3 Months Insurance [place]ICAID [place] [address] [place], [place] [id number] Care Teams Clinical Informatics Specialist Relationship Specialty Start Date End Date Maryann Alexis, CUT AND PRINT MACHINE OPERATOR, LACING CUTTER [address] [place] [address] PCP - General Advanced Practice Nurse 09/19/23
--- OUTSIDE RECORDS SUMMARY | 2024-08-19 15:22 | XMS_ITS | Clinical Summary ---
Author Organization [facility] [employer] Address [address] [place] [address] Care Team Providers Care Licensed Final Expense Agents Name Role Phone Leslee Melendez MD Primary Care Provider [phone] Nader Ochoa MD Unavailable [phone] Source Comments [facility],non-owned Affiliates and Associated Physician Practices is amultiple site organization consisting of ambulatory clinics and hospital sitesin [place], [place], [place] and [place]. This disclosure is being madepursuant to the Care Everywhere program and may not contain all information available regarding this patient. Last updated 18.[facility] Allergies No known active allergies Medications * Be aware that medications may not be up to date on this document. Alwaysverify current medications with the patient. 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 Social History Tobacco Use Types Packs/Day Years Used Date Smoking Tobacco: Passive Smo ke Exposure - Never Smoker Smokeless Tobacco: Never Alcohol Use Standard Drinks/Week Comments Never 0 (1 standard drink = 0.6 oz pur e alcohol) AUDIT-C Answer Date Recorded Frequency of Alcohol Consumption Never 04/02/2019 Average Number of Drinks Not on file 019 Frequency of Binge Drinking Not on file 06/2018 Sex and Gender Information Value Date Recorded Sex Assigned at Not on file Gender Identity Not on file Sexual Orientation Not on file Last Filed Vital Signs Vital Sign Reading Time Taken Comments Blood Pressure 116/76 04/15/2019 1:47 PM MYSQL DBA Pulse 69 04/02/2019 12:00 PM CDT Temperature 36.9 C (98.4 F) 04/15/2019 1:47 PM MYSQL DBA Respiratory Rate 21 04/02/2019 12:0 0 PM CDT Oxygen Saturation 98% 04/02/2019 12: 00 PM CDT Inhaled Oxygen Concentration - - Weight 85.1 kg (187 lb 9.8 oz) 12/24/2019 2:17 P M CDT Height 165.2 cm (5' 5.04 ) 12/24/2019 2:17 PM CD T Body Mass Index 31.18 12/24/2019 2:17 PM CDT Body Mass Index Percentile 96.76% 12/24/2019 2:1 7 PM CDT Growth Chart: [facility] (Girls, 2- 20 Years) Plan of Treatment Health Maintenance Due Date Last Done Comments HIV SCREENING 09/07/2019 HPV VACCINE (1 - 3-dose series) 09/07/2019 CHLAMYDIA/GONORRHEA SCREENING 2020 MENINGOCOCCAL (Group B) VACC INE SHARED DECISION-MAKING (1 of 2 - Standard) 2020 HEPATITIS C SCREENING 09/02/2022 DTAP/TDAP/TD VACCINES (1 - Tdap) 09/07/2023 HEPATITIS B VACCINE (1 of 3 - 19+ 3-dose series) 09/07/2023 COVID-19 VACCINE (1 - 2023-2 5 season) 2024 INFLUENZA VACCINE (#1) 2024 DEPRESSION SCREENING 06/02/2024 ZOSTER VACCINE (1 of 2) 2054 HIB VACCINE Aged Out No longer eligi ble based on patient's age to complete this topic MENINGOCOCCAL GROUPS A/C/Y/W VACCINE Aged Out No longer eligible b ased on patient's age to complete this topic PNEUMOCOCCAL VACCINE Aged Out No long er eligible based on patient's age to complete this topic Medical Devices Implanted Type Area Clinical Assistant Professor Device Identifier Shelf Expiration Date Model / Serial / Lot Bronte Sut Pushlock 2.9mm Bcmps Brett Implanted:Qty: 1 on 04/02/2019 by Nader Ochoa MD at [facility] Left: Shoulder [employer] 12/30/2020 AR-2923BC / / [id number] Bronte Sut Pushlock 2.9mm Bcmps Brett Implanted:Qty: 1 on 04/02/2019 by Nader Ochoa MD at [facility] Left: Shoulder [employer] 08/30/2020 AR-2923BC / / [id number] Bronte Sut Pushlock 2.9mm Bcmps Brett Implanted:Qty: 1 on 04/02/2019 by Nader Ochoa MD at [facility] Left: Shoulder [employer] 08/30/2020 AR-2923BC / / [id number] Bronte Sut Pushlock 2.9mm Bcmps Brett Implanted:Qty: 1 on 04/02/2019 by Nader Ochoa MD at [facility] Left: Shoulder [employer] 01/30/2021 AR-2923BC / / [id number] Bronte Sut Pushlock 2.9mm Bcmps Brett Implanted:Qty: 1 on 04/02/2019 by Nader Ochoa MD at [facility] Left: Shoulder [employer] 07/02/2020 AR-2923BC / / [id number] Care Teams Licensed Final Expense Agents Relationship Specialty Start Date End Date Leslee Melendez MD [address] [place], [place] [id number] PCP - General Pediatrics 11/17/14 Nader Ochoa MD [address] [place], [place] [id number] Orthopedic Surgery 04/15/19
[2024-08-19 15:34] LABS: EDINFLUASCREEN Negative (Negative); EDINFLUBSCREEN Negative (Negative)
[2024-08-19 15:35] LABS: EDCOVIDSCREEN Negative (Negative); EDSTREPNEGPOS1 Negative (Negative)
== END 2024-08-19 15:34 | disposition home or self-care (01) ==
PROVIDERS: Emergency Provider Nurse Practitioner
DX: R09.82 Postnasal drip (principal); J06.9 Acute upper respiratory infection, unspecified; Z20.822 Contact with and (suspected) exposure to COVID-19; F41.9 Anxiety disorder, unspecified; F32.A Depression, unspecified
CPT/HCPCS: 87081; 87426; 87804; 87880; 99213; G0463

== ENCOUNTER 2024-09-28 17:37 | Emergency (ER) | payer OTHER, SELFPAY ==
[2024-09-28 17:42] VITALS: BP 125/60; PULSE 75; RESP 16; TEMP 36.3; O2SAT 100
--- NOTE | 2024-09-28 17:48 | ED_ITS ---
HPI - URI/Sore Throat General Chief Complaint: Upper Respiratory Infection Stated Complaint: Sore Throat/Congestion/Headache Time Seen by Provider: 09/28/24 17:48 History of Present Illness HPI Narrative: 19 y/o female presented for c/o sore throat, headache, body aches, nasal congestion and drainage, nausea and occasional dizziness. Onset 3 days. Denies sob, wheezing, vomiting, or lethargy. Taking Tylenol Cold & Flu. Related Data Home Medications ?Medication ?Instructions ?Recorded ?Confirmed ?Last Taken ?Type sertraline 50 mg tablet mg 08/19/24 Unknown History Allergies Allergy/AdvReac Type Severity Reaction Status Date / Time No Known Allergies Allergy Unverified 09/28/24 17:47 Review of Systems Review of Systems: per HPI Exam Narrative: GENERAL: well-appearing, no acute distress. EYES: conjunctivae clear ENT: Mucous membranes moist. nasal congestion. TM pearly casey with normal light reflex bilaterally; no tragal tenderness. Oropharynx erythematous without lesions. No drooling, no hoarseness, no trismus, uvula midline. No tripod positioning, hot potato voice, or soft palate swelling. NECK: Supple. No lymphadenopathy CHEST: Clear to auscultation, breath sounds equal. No respiratory distress, speaks in full sentences. HEART: Regular rate and rhythm. No murmur heard. SKIN: Warm, dry, no rash. NEURO: Alert and oriented x3. Course Course Emergency Course: Patient is aware of diagnosis, understands and agrees to treatment plan. Anticipatory guidance given. Patient agrees to follow-up as directed and is aware of reasons to seek care at the emergency department. Portions of this record may have been created with voice recognition software Level of Care: Express Care Visit MDM - URI/Sore Throat MDM Narrative Medical decision making narrative: flu, covid, strep result reviewed with pt. Advise supportive treatments. Patient is appropriate for outpatient treatment and follow-up. Differential Diagnosis Differential diagnosis: Likely upper respiratory infection, viral infection and pharyngitis Discharge Plan Discharge Clinical Impression: Upper respiratory infection Patient Disposition: Home Condition: Stable Instructions: Antibiotic Form, Upper Respiratory Infection (ED) Additional Instructions: Flu and COVID negative. Rapid strep swab was negative today You will be notified in a few days if the culture comes back positive for strep, and appropriate antibiotics will be called in at that time. if symptoms are due to a viral illness, it is not treated with antibiotics. Viral symptoms can be present for up to 10-14 days. Recommendations: Flonase spray and Zyrtec for sinus congestion Cough syrup may cause drowsiness; avoid driving or take it at night time. Tylenol every 8 hours as needed for pain/fever Soft foods, cool liquids, warm tea. Gargle with warm saltwater twice a day. Chloraseptic spray and throat lozenges. Rest and stay hydrated. --Follow up with your PCP --Go to the ER immediately if you cannot swallow your saliva, trouble breathing /wheezing, throat swelling, pain is persistent and severe Patient Language: Panamanian Prescriptions: No Action sertraline 50 mg tablet Follow-up/Referrals: Maryann Alexis RN [Primary Care Provider] - Time of Disposition: 18:04
--- OUTSIDE RECORDS SUMMARY | 2024-09-28 17:50 | XMS_ITS | Clinical Summary ---
Author Organization [facility] [employer] Address [address] [place] [address] Care Team Providers Care Merchandise Director Name Role Phone Leslee Melendez MD Primary Care Provider [phone] Nader Ochoa MD Unavailable Source Comments [facility],non-owned Affiliates and Associated Physician Practices is amultiple site organization consisting of ambulatory clinics and hospital sitesin [place], [place], [place] and [place]. This disclosure is being madepursuant to the Care Everywhere program and may not contain all information available regarding this patient. Last updated 18.[facility] Allergies No known active allergies Medications * Be aware that medications may not be up to date on this document. Alwaysverify current medications with the patient. lamoTRIgine (LAMICTAL) 25 MG tablet TK 2 TS PO D 1 12/21/2018 Active albuterol HFA (PROVENTIL;VENT DELFINA;PROAIR) 108 (90 Base) MCG/ACT inhaler INL 2 [...] of Binge Drinking Not on file 06/2018 Comments No Sex and Gender Information Value Date Recorded Sex Assigned at Not on file Legal Sex Female 11:08 AM SAMPLE TESTER GRINDER Gender Identity Not on file Sexual Orientation Not on file Last Filed Vital Signs Vital Sign Reading Time Taken Comments Blood Pressure 116/76 04/15/2019 1:47 PM SAMPLE TESTER GRINDER Pulse 69 04/02/2019 12:00 PM CDT Temperature 36.9 C (98.4 F) 04/15/2019 1:47 PM SAMPLE TESTER GRINDER Respiratory Rate 21 04/02/2019 12:00 PM CDT Oxygen Saturation 98% 04/02/2019 12:00 PM CDT Inhaled Oxygen Concentration - - Weight 85.1 kg (187 lb 9.8 oz) 12/24/2019 2:17 P M CDT Height 165.2 cm (5' 5.04 ) 12/24/2019 2:17 PM CD T Body Mass Index 31.18 12/24/2019 2:17 PM CDT Plan of Treatment Health Maintenance Due Date [...] VACCINE (1 - 2023-2 5 season) 2024 DEPRESSION SCREENING 06/02/2024 INFLUENZA VACCINE (Season Ended) 2025 ZOSTER VACCINE (1 of 2) 2054 HIB VACCINE Aged Out No longer eligi ble based on patient's age to complete this topic MENINGOCOCCAL GROUPS A/C/Y/W VACCINE Aged Out No longer eligible b ased on patient's age to complete this topic PNEUMOCOCCAL VACCINE Aged Out No long er eligible based on patient's age to complete this topic Medical Devices Implanted Type Area Meteorologist In Charge Device Identifier Shelf Expiration Date Model / Serial / Lot [place] Sut Pushlock 2.9mm Bcmps Brett Implanted:Qty: 1 on 04/02/2019 by Nader Ochoa MD at [facility] Left: Shoulder [employer] 12/30/2020 AR-2923BC / / [id number] Wahoo Sut Pushlock 2.9mm Bcmps Brett Implanted:Qty: 1 on 04/02/2019 by Nader Ochoa MD at [facility] Left: Shoulder [employer] 08/30/2020 AR-2923BC / / [id number] Wahoo Sut Pushlock 2.9mm Bcmps Brett Implanted:Qty: 1 on 04/02/2019 by Nader Ochoa MD at [facility] Left: Shoulder [employer] 08/30/2020 AR-2923BC / / [id number] Wahoo Sut Pushlock 2.9mm Bcmps Brett Implanted:Qty: 1 on 04/02/2019 by Nader Ochoa MD at [facility] Left: Shoulder [employer] 01/30/2021 AR-2923BC / / [id number] Wahoo Sut Pushlock 2.9mm Bcmps Brett Implanted:Qty: 1 on 04/02/2019 by Nader Ochoa MD at [facility] Left: Shoulder [employer] 07/02/2020 AR-2923BC / / [id number] Insurance [place]ID - [place] [facility] Care Teams Merchandise Director Relationship Specialty Start Date End Date Leslee Melendez MD [address] [place], [place] [id number] PCP - General Pediatrics 11/17/14 Nader Ochoa MD [address] [place], [place] [phone] Orthopedic Surgery 04/15/19
--- OUTSIDE RECORDS SUMMARY | 2024-09-28 17:50 | XMS_ITS | Encounter Summary ---
Author Organization [facility] Address [address] [place] [address] Phone Care Team Providers Care Dean Of Students Name Role Phone Maryann Alexis APRN, BRAILLE PROOFREADER Primary Care Provider + Reason for Visit * Reason Onset Date Comments Results 08/25/2024 Encounter Details Date Type Department Care Team (Latest Contact Info) Description 08/25/2024 Results Follow-Up [facility] - Gastroenterology [facility] [address] [place] [address] Kanwal Hui RN [place] Pathology Surgical Social History Tobacco Use Types Packs/Day Years Used Date Smoking Tobacco: Never Alcohol Use Standard Drinks/Week Comments Not Currently 0 (1 standard drink = 0.6 oz pur e alcohol) [facility] Utilities Answer Date Recorded In the past 12 months has [employer], gas, oil, or water [employer] threatened to shut off services in your [...] 09/18/2023 How often do you attend chur ch or pentecostalism services? Never 09/18/2023 Do you belong to any clubs o r organizations such as cheondoism groups, unions, fraternal or athletic groups, or [...] Total Score - Questions 1-9 1 07/[address] [facility] - Occupational Stress Questionnaire Answer Date Recorded [...] on file Sexual Orientation Not on file documented as of this encounter Plan of Treatment Upcoming Encounters Date Type Department Care Team (Late st Contact Info) Description 10/01/2024 8:15 AM CDT Office Visit [facility] - Family Medicine [facility] [address] [place] [address] Maryann Alexis APRN, BRAILLE PROOFREADER [address] [place] [address] documented as of this encounter Visit Diagnoses Not on filedocumented in this encounter Additional Health Concerns Assessment Noted Time PHQ-9 Depression Total Score: 1 06/04/19 25 10:14 AM BENCH EXAMINER documented as of this encounter Care Teams Dean Of Students Relationship Specialty Start Date End Date Maryann Aelxis APRN, BRAILLE PROOFREADER [address] [place] [address] PCP - General Advanced Practice Nurse 09/19/23 documented as of this encounter
--- OUTSIDE RECORDS SUMMARY | 2024-09-28 17:50 | XMS_ITS | Clinical Summary ---
Author Organization [facility] Address [address] [place] [address] Phone Care Team Providers Care Carcass Trimmer Name Role Phone Maryann Alexis APRN, ADVANCED PRACTICE PROFESSIONAL Primary Care Provider + Allergies Active Allergy [...] Encounters Date Type Department Care Team Description 08/25/2024 Results Follow-Up [facility] - Gastroenterology - [place] [address] [place] [phone] Kanwal Hui RN Pathology Surgical 08/13/2024 12:30 PM CDT - 08/13/2024 1:30 PM CDT Surgery [facility] Periop [address] [place] [address] Sterling Onofre MD EGD--NORMAL EXAM 08/13/2024 12:10 PM CDT Ancillary Procedure [facility] Main [address] [place] [address] Sterling Onofre MD 08/13/2024 12:05 PM CDT Ancillary [facility] Main [address] [place] [address] Sterling Onofre MD 08/13/2024 12:01 PM CDT Anesthesia [facility] Per[facility] 1 [facility] [place] [address] Bharath Dias APRN, ANGEL 08/13/2024 11:30 AM CDT - 08/13/2024 1:34 PM CDT Hospital [facility] Preop/Pacu II [address] [place] [address] Sterling Onofre MD Discharge Disposition: Discharged to home or Selfcare 08/13/2024 Travel 08/02/2024 Travel 07/18/2024 Refill [facility] - [place] [address] [place] [address] Maryann Alexis APRN, ADVANCED PRACTICE PROFESSIONAL Medication Refill 07/05/2024 10:[address] CLEANING EQUIPMENT OPERATOR Office Visit [facility] - Gastroenterology - [place] [address] [place] [address] Sterling Onofre MD Blood in stool (Primary Dx); Nausea and vomiting, unspecified vomiting type; Diarrhea, unspecified type Discharge Disposition: Discharged to home or Selfcare 07/05/2024 Travel from Last 3 Months Immunizations Immunization [...] drink = 0.6 oz pur e alcohol) [facility] Utilities Answer Date Recorded In the past 12 months has th e electric, gas, oil, or water [employer] threatened to shut off services in your [...] often do you attend chur ch or methodist services? Never 09/18/2023 Do you belong to any clubs o r organizations such as lutheran groups, unions, fraternal or athletic groups, or [...] Total Score - Questions 1-9 1 07/2024 [facility] - Occupational Stress Questionnaire Answer Date Recorded [...] place to sleep or slept in a snf (including now)? No 09/18/2023 Sexually Active Control [...] 66.7 kg (147 lb) 08/02/2024 2:[address] CLEANING EQUIPMENT OPERATOR Height 165.1 cm (5' 5 ) 08/02/2024 2:[address] CLEANING EQUIPMENT OPERATOR Body Mass Index 24.46 08/02/2024 2:[address] CLEANING EQUIPMENT OPERATOR Plan of Treatment Upcoming Encounters Date Type Department Care Team (Late st Contact Info) Description 10/01/2024 8:15 AM CDT Office Visit [facility] [address] [place] [address] Maryann Aelxis, CABLE TV INSTALLER, ADVANCED PRACTICE PROFESSIONAL [address] [place] [address] Health Maintenance Due Date Last Done Comments Hepatitis C Virus (HCV) Screening 2004 SARS-COV-2 Immunization ( season) 2024 DTaP/Tdap/Td Immunization (7 - Td or Tdap) 11/15/2024 11/15/2014, 09/30/2008, 12/12/2005, Additional history exists Influenza Immunization (Season Ended) 2025 04/07/2023, 04/22/2022, 03/01/2021, Additional history exists Respiratory Syncytial Virus (RSV) [...] NOT HI RSK IND 12:03 PM CDT COLONOSCOPY--C ECAL BIOPSY, ASCENDING COLON BIOPSY, TRANSVERSE COLON BIOPSY, DESCENDING COLON BIOPSY, SIGMOID COLON BIOPSY, RECTAL BIOPSYEGD--NOR MAL EXAM Special Needs NEEDS PREG TEST Dx-Nausea & vomiting/Diarrhea COLORECTAL SCRN; HI RISK IND 12:03 PM CDT COLONOSCOPY--C ECAL BIOPSY, ASCENDING COLON BIOPSY, TRANSVERSE COLON BIOPSY, DESCENDING COLON BIOPSY, SIGMOID COLON BIOPSY, RECTAL BIOPSYEGD--NOR MAL EXAM Special Needs NEEDS PREG TEST Dx-Nausea & vomiting/Diarrhea MS COLONOSCOPY FLX DX W/NISSA J SPEC WHEN PFRMD 08/13/2024 12:03 PM CDT COLONOSCOPY--C ECAL BIOPSY, ASCENDING COLON BIOPSY, TRANSVERSE COLON BIOPSY, DESCENDING COLON BIOPSY, SIGMOID COLON BIOPSY, RECTAL BIOPSYEGD--NOR MAL EXAM Special Needs NEEDS PREG TEST Dx-Nausea & vomiting/Diarrhea MS ESOPHAGOGASTRODUODENOSCOP Y TRANSORAL DIAGNOSTIC 08/13/2024 12:03 PM CDT COLONOSCOPY--C ECAL BIOPSY, ASCENDING COLON BIOPSY, TRANSVERSE COLON BIOPSY, DESCENDING COLON BIOPSY, SIGMOID COLON BIOPSY, RECTAL BIOPSYEGD--NOR MAL EXAM Special Needs NEEDS PREG TEST Dx-Nausea & vomiting/Diarrhea MS EGD FLEXIBLE TRANSNASAL D X W/COLLJ SPEC BR/WA 08/13/2024 12:03 PM CDT COLONOSCOPY--C ECAL BIOPSY, ASCENDING COLON BIOPSY, TRANSVERSE COLON BIOPSY, DESCENDING COLON BIOPSY, SIGMOID COLON BIOPSY, RECTAL BIOPSYEGD--NOR MAL EXAM Special Needs NEEDS PREG TEST Dx-Nausea & vomiting/Diarrhea GI IMAGING - COLONOSCOPY Routine 025 12:02 PM CDT GI LAB IMAGING - EGD Routine 08/13/2024 12:02 PM CDT POCT URINE HCG () Routine 08/13 11:48 AM CDT from Last 3 Months Results * Pathology Surgical (08/13/2024 12:42 PM CDT) Case Report Surgical Pathology Report Case: [id number] Authorizing Provider: Sterling Onofre MD Collected: 08/13/2024 12:42 PM Ordering Location: [facility] Received: 08/13/2024 01:16 PM [facility] Main Pathologist: Stephen Woods MD Specimens: A) - Colon, CECAL BIOPSY B) - Colon, ASCENDING COLON BIOPSY C) - Colon, TRANSVERSE COLON BIOPSY D) - Colon, DESCENDING COLON BIOPSY E) - Colon, SIGMOID COLON BIOPSY F) - Rectal, RECTAL BIOPSY 08/16/2024 10:49 AM CDT [facility] FINAL DIAGNOS[facility] A. Cecal [...] No microscopic colitis 08/16/2024 10:49 AM CDT [facility] at 1049 CDT Pre-Operative Diagnosis NAUSEA, VOMITING, DIARRHEA 08/16/2024 10:49 AM CDT [facility] Gross Description A. CECAL [...] minutes. KS/sb 08/16/2024 10:49 AM CDT [facility] Microscopic Description A. Sections show normal-appeari ng colon. B. Sections show normal-appeari ng colon. C. Sections show normal-appeari ng colon. D. Sections show normal-appeari ng colon. E. Sections show normal-appeari ng colon. F. Sections show normal-appeari ng colon. 08/16/2024 10:49 AM CDT [facility] Tissue COLON STRUCTURE / Unknown 08/13/2024 [...] MD PATHOLOGY/CYTOLOGY ORDERA BLES Final Result [facility] [address] [place] [address] * GI IMAGING - COLONOSCOPY (08/13/2024 12:02 PM CDT) Sterling Onofre MD [employer] DIAGNOSTIC ORDERABLES Final Result * GI LAB IMAGING - EGD (08/13/2024 12:02 PM CDT) Sterling CAMERON DIAGNOSTIC ORDERABLES Final Result * POCT Urine HCG () (08/13/2024 11:48 AM CDT) POC URINE Negative POC URINE CONTROL Dictaphone Mechanic Pass Urine 08/13/2024 11:4 8 AM CDT Sterling Onofre MD POINT OF CARE TESTING (REKHA SANCHEZ) Final Result from Last 3 Months Insurance MEDICAID [place] [facility] [place] Care Teams Carcass Trimmer Relationship Specialty Start Date End Date Maryann Alexis, CABLE TV INSTALLER, ADVANCED PRACTICE PROFESSIONAL [address] [place] [address] PCP - General Advanced Practice Nurse 09/19/23
[2024-09-28 18:04] LABS: EDCOVIDSCREEN Negative (Negative)
[2024-09-28 18:05] LABS: EDINFLUASCREEN Negative (Negative); EDINFLUBSCREEN Negative (Negative); EDSTREPNEGPOS1 Negative (Negative)
== END 2024-09-28 18:07 | disposition home or self-care (01) ==
PROVIDERS: Emergency Provider Nurse Practitioner Family
DX: J06.9 Acute upper respiratory infection, unspecified (principal); Z20.822 Contact with and (suspected) exposure to COVID-19
CPT/HCPCS: 87081; 87426; 87804; 87880; 99213; G0463